=== PATIENT | female | born 1990 | race African-American/Black ===

== ENCOUNTER 2021-07-06 03:39 | Emergency (ER) | payer SELFPAY ==
[~2021-07-06] VITALS: Ht 162.6 cm; Wt 64.0 kg
[2021-07-06] MEDS ORDERED: HALOPERIDOL LACTATE 5 MG/ML VIAL. IM ONE (04:15)
--- NOTE | 2021-07-06 05:17 | PHYS DOC ---
Past Medical History Past Surgical History: No Surgical History Smoking Status: Current Some Day Smoker Alcohol Use: Occasionally Additional Information: STATES "LATELY BEEN DRINKING ON DAILY BASIS" General Adult EDM: Chief Complaint: ANXIETY/PANIC ATTACK HPI: HPI: Patient is a 31 year old female presents with anxiety reaction. Patient had stated that she started to feel sore throat and is worried that she had COVID. Patient appears agitated states that she went for a long walk but she was unable to sleep states that she felt lightheaded and was worried because she did not drink alcohol today. Patient denies any suicidal homicidal ideation. Review of Systems: Review of Systems: Constitutional: Denies fever or chills. [] Eyes: Denies change in visual acuity. [] HENT: Reports congestion sore throat Respiratory: Denies cough or shortness of breath. [] Cardiovascular: Lightheadedness denies chest pain or edema. [] GI: Denies abdominal pain, nausea, vomiting, bloody stools or diarrhea. [] : Denies dysuria. [] Musculoskeletal: Denies back pain or joint pain. [] Integument: Denies rash. [] Neurologic: Denies headache, focal weakness or sensory changes. [] Endocrine: Denies polyuria or polydipsia. [] Lymphatic: Denies swollen glands. [] Psychiatric: Anxiety denies depression or anxiety. [] Heart Score: C/O Chest Pain: No Risk Factors: Risk Factors: DM, Current or recent (<one month) smoker, HTN, HLP, family history of CAD, obesity. Risk Scores: Score 0 - 3: 2.5% MACE over next 6 weeks - Discharge Home Score 4 - 6: 20.3% MACE over next 6 weeks - Admit for Clinical Observation Score 7 - 10: 72.7% MACE over next 6 weeks - Early Invasive Strategies Current Medications: Current Medications Medications (Trade) Dose Ordered Sig/Bernadette Start Time Stop Time Status Last Admin Dose Admin Haloperidol Lactate (Haldol Inj) 5 mg 1X ONCE 07/06/21 04:15 07/06/21 04:16 DC 07/06/21 04:40 5 MG Lorazepam (Ativan Inj) 2 mg 1X ONCE 07/06/21 04:00 07/06/21 04:01 DC 07/06/21 04:01 2 MG Allergies: Allergies: Allergies Coded Allergies Type Severity Reaction Last Updated Verified No Known Drug Allergies 07/06/21 No Physical Exam: PE: Constitutional: Well developed, well nourished, in acute distress, non-toxic appearance. [] HENT: Normocephalic, atraumatic, bilateral external ears normal, oropharynx moist, no oral exudates, nose normal. [] Eyes: PERRLA, EOMI, conjunctiva normal, no discharge. [] Neck: Normal range of motion, no tenderness, supple, no stridor. [] Cardiovascular:Heart rate regular rhythm, no murmur [] Lungs & Thorax: Bilateral breath sounds clear to auscultation [] Abdomen: Bowel sounds normal, soft, no tenderness, no masses, no pulsatile mass es. [] Skin: Warm, dry, no erythema, no rash. [] Back: No tenderness, no CVA tenderness. [] Extremities: No tenderness, no cyanosis, no clubbing, ROM intact, no edema. [] Neurologic: Alert and oriented X 3, normal motor function, normal sensory function, no focal deficits noted. [] Psychologic: Patient is animated, anxious Current Patient Data: Labs: Laboratory Tests Test 07/06/21 04:05 07/06/21 04:38 SARS-CoV-2 Antigen (Rapid) Negative (NEGATIVE) POC Urine HCG, Qualitative Hcg negative (Negative) Vital Signs: Vital Signs Date Time Temp Pulse Resp B/P (MAP) Pulse Ox O2 Delivery O2 Flow Rate FiO2 07/06/21 05:00 120 22 07/06/21 04:30 149/92 (111) 97 07/06/21 03:40 98.7 Room Air 98.7 EKG: EKG: [] Radiology/Procedures: Radiology/Procedures: [] Patient's vital signs are improving. Patient states that she feels much better. COVID test was reviewed patient which was negative. Patient was also worried that she may be which we also did a test for. Patient has a negative test. Patient is afebrile. Patient will follow up in the outpatient setting return precautions were discussed Course & Med Decision Making: Course & Med Decision Making Pertinent Labs and Imaging studies reviewed. (See chart for details) [] Dragon Disclaimer: Dragon Disclaimer: This electronic medical record was generated, in whole or in part, using a voice recognition dictation system. Departure Departure Impression: Primary Impression: Anxiety reaction VANDANA NORRIS DO Jul 06, 2021 05:17
[2021-07-06 05:44] VITALS: BP 145/83
== END 2021-07-06 05:56 | disposition home or self-care (01) ==
LOC: ER 03:39
DX: F41.9 Anxiety disorder, unspecified (principal); R42 Dizziness and giddiness; J02.9 Acute pharyngitis, unspecified; F17.200 Nicotine dependence, unspecified, uncomplicated
CPT/HCPCS: 81025; 87426; 96372; 99284; J1630; J2060